=== PATIENT | male | born 1965 | race Hispanic/Latino ===

== ENCOUNTER 2022-10-02 00:24 | Inpatient (IN) | payer SELFPAY ==
[2022-10-02] MEDS ORDERED: Pantoprazole 40 MG VIAL ONE (01:04)
[2022-10-02] MEDS ORDERED: Pantoprazole 80 MG, Admixture Fee 1 EACH in Sodium Chloride 0.9% 100 ML IVPB SCH (01:30)
[2022-10-02] MEDS ORDERED: Octreotide Acetate 1,250 MCG in Sodium Chloride 0.9% 250 ML 250 ML IVPB SCH ×2 (01:30→09:00)
[2022-10-02 01:39] LABS: Hemoglobin 11.1 g/dL (14.0-18.0); Mean Corpuscular HGB CONC 35.9 g/dL (32.0-36.0); Mean Corpuscular Hemoglobin 36.8 pg (27.0-31.0); RBC Distribution Width 13.7 % (11.5-14.5); Red Blood Cell (RBC) Count 3.03 mill/uL (4.70-6.10); White Blood Cell (WBC) Count 8.9 10x3/uL (4.8-10.8)
[2022-10-02 01:42] LABS: ALT (SGPT) 27 U/L (8-55); AST (SGOT) 57 U/L (5-34); Albumin 3.3 g/dL (3.5-5.0); Alkaline Phosphatase 153 U/L (40-110); Anion Gap 16 mmol/L (10-20); BUN (Urea Nitrogen) 17 mg/dL (8.4-25.7); Bilirubin, Total 4.2 mg/dL (0.2-1.2); Calc. Creatinine Clearance 0 mL/min (70-130); Calcium 8.9 mg/dL (7.8-10.44); Carbon Dioxide 19 mmol/L (22-29); Chloride 106 mmol/L (98-107); Estimated GFR 103; Globulin 4.1 g/dL (2.4-3.5); Glucose 132 mg/dL (70-105); Protein, Total 7.4 g/dL (6.0-8.3); Sodium 137 mmol/L (136-145)
[2022-10-02 01:50] LABS: INR-International Normal Ratio 1.5; PTT 34.2 sec (22.9-36.1); Prothrombin Time 19.1 sec (12.0-14.7)
[2022-10-02 02:00] LABS: #Basophils 0.1 thou/uL (0.0-0.2); #Eosinphils 0.2 thou/uL (0.0-0.7); #Lymphocytes 3.4 thou/uL (1.20-3.40); #Monocytes 0.7 thou/uL (0.11-0.59); #Neutrophils 4.5 thou/uL (1.40-6.50); %Basophils 1.2 % (0.0-1.0); %Eosinophils 2.6 % (0.0-10.0); %Lymphocytes 37.9 % (21.0-51.0); %Monocytes 8.4 % (0.0-10.0); MDiff Complete? YES; Macrocytosis SLIGHT = 6-15 cells (100X) (0-5/hpf); Mean Platelet Volume 8.8 fL (7.4-10.4); Platelet Count 85 10x3/uL (130-400); Platelet Morphology Comment Appears Decreased; Polychromasia SLIGHT = 2-3 cells (100X) (0-2/hpf); Tear Drops SLIGHT = 2-5 cells (100X) (0-1/hpf)
[2022-10-02] MEDS ORDERED: Ondansetron PF 4 MG/2 ML Vial ONE ×3 (02:31→12:42)
[2022-10-02 07:05] LABS: Bacteria/HPF None Seen HPF (None Seen); Bilirubin Negative (Negative); Blood, Urine 1+ (Negative); Clarity Clear (Clear); Glucose, Urine (Dipstick) Normal (Negative); Ketone, Urine 10 mg/dL (Negative); Leukocyte Negative Leu/uL (Negative); Nitrite Negative (Negative); Protein, Urine (Dipstick) 30 mg/dL (Neg-Trace); Specific Gravity, Urine 1.036 (1.002-1.036); Squamous Epithelial None Seen HPF (0-3); WBC/HPF 0-3 HPF (0-3)
[2022-10-02] MEDS ORDERED: Ondansetron ODT 4 MG TAB PO PRN ×2 (08:37)
[2022-10-02] MEDS ORDERED: Ondansetron PF 4 MG/2 ML Vial IVP PRN (08:37)
[2022-10-02] MEDS ORDERED: Lorazepam 1 MG TAB PO PRN (08:37)
[2022-10-02] MEDS ORDERED: hydrALAZINE 20 MG/ML VIAL SLOW IVP PRN (08:37)
[2022-10-02] MEDS ORDERED: Lorazepam 2 MG/ML VIAL IM PRN (08:37)
[2022-10-02] MEDS ORDERED: Electrolyte Replacement Protocol 1 EACH FS SCH (08:45)
[2022-10-02] MEDS ORDERED: Pantoprazole 80 MG in Sodium Chloride 0.9% 100 ML IVPB SCH (09:00)
[2022-10-02] MEDS ORDERED: Lorazepam 1 MG TAB ONE (10:06)
[2022-10-02] MEDS ORDERED: Folic Acid 1 MG TAB ONE (10:06)
[2022-10-02] MEDS ORDERED: Morphine 2 MG/ML VIAL SLOW IVP PRN (10:11)
[2022-10-02 10:29] LABS: #Lymphocytes 1.8 thou/uL (1.20-3.40); #Monocytes 0.5 thou/uL (0.11-0.59); %Basophils 0.7 % (0.0-1.0); %Eosinophils 0.2 % (0.0-10.0); %Monocytes 7.2 % (0.0-10.0); Hemoglobin 10.7 g/dL (14.0-18.0); Mean Corpuscular HGB CONC 35.5 g/dL (32.0-36.0); Mean Corpuscular Hemoglobin 36.8 pg (27.0-31.0); Mean Platelet Volume 8.9 fL (7.4-10.4); Platelet Count 69 10x3/uL (130-400); RBC Distribution Width 13.8 % (11.5-14.5); White Blood Cell (WBC) Count 6.3 10x3/uL (4.8-10.8)
[2022-10-02 10:46] LABS: ALT (SGPT) 26 U/L (8-55); AST (SGOT) 50 U/L (5-34); Albumin 3.2 g/dL (3.5-5.0); Alkaline Phosphatase 135 U/L (40-110); Anion Gap 14 mmol/L (10-20); BUN (Urea Nitrogen) 23 mg/dL (8.4-25.7); Bilirubin, Direct 2.1 mg/dL (0.1-0.3); Bilirubin, Total 5.4 mg/dL (0.2-1.2); Calc. Creatinine Clearance 119 mL/min (70-130); Carbon Dioxide 18 mmol/L (22-29); Chloride 109 mmol/L (98-107); Estimated GFR 105; Globulin 3.9 g/dL (2.4-3.5); Glucose 147 mg/dL (70-105); Magnesium 1.8 mg/dL (1.6-2.6); Phosphorus 2.3 mg/dL (2.3-4.7); Potassium 4.4 mmol/L (3.5-5.1); Protein, Total 7.1 g/dL (6.0-8.3); Sodium 137 mmol/L (136-145)
[2022-10-02] MEDS ORDERED: Glycopyrrolate 0.2 MG/ML 5 ML SYRINGE ONE (11:37)
[2022-10-02] MEDS ORDERED: NEOSTIGMINE 3 MG/3 ML SYR 3 MG/3 ML SYRINGE ONE (11:37)
[2022-10-02] MEDS ORDERED: Lidocaine 1% PF 5 ML VIAL ONE (11:37)
[2022-10-02] MEDS ORDERED: Rocuronium Bromide 10 MG/ML (10ML VIAL) ONE (11:37)
[2022-10-02] MEDS ORDERED: PROPOFOL 200 MG/20 ML VIAL ONE (11:37)
[2022-10-02] MEDS ORDERED: Succinylcholine Chloride 100 MG/5 ML SYRINGE FS ONE (11:37)
[2022-10-02] MEDS: Lactated Ringer's 1,000 ML IV SCH ×2 (12:30→20:06)
[2022-10-02] MEDS ORDERED: Magnesium 2 GM/50 ML(in water) 2 GM in Premix Bag 1 BAG IVPB SCH (13:15)
[2022-10-02] MEDS: cefTRIAXone\\ROCEPHIN 1 GM in Sodium Chloride 0.9% 100 ML IVPB SCH (14:14)
[2022-10-02] MEDS: Lorazepam 1 MG TAB PO SCH ×3 (14:15→20:01)
[2022-10-02 17:13] VITALS: BMI 27.6
[2022-10-02 17:19] LABS: Amphetamine Not Detected (NotDetected); Barbiturates Screen Not Detected (NotDetected); Benzodiazepine Screen Not Detected (NotDetected); Cocaine Metabolite Screen Not Detected (NotDetected); Methadone Not Detected (NotDetected); Methamphetamine Not Detected (NotDetected); Opiate Screen Not Detected (NotDetected); Oxycodone Screen Not Detected (NotDetected); Phencyclidine (PCP) Not Detected (NotDetected); THC/Cannabinoid Screen Not Detected (NotDetected); Tricyclic Screen Not Detected (NotDetected)
[2022-10-02] MEDS: Multivit, Therapeutic 1 TAB PO SCH (18:04)
[2022-10-02] MEDS: Thiamine HCl 200 MG/2 ML VIAL SLOW IVP SCH (18:04)
[2022-10-02] MEDS: Folic Acid 1 MG TAB PO SCH (18:04)
[2022-10-02] MEDS ORDERED: Acetaminophen 500 MG TAB PO PRN (18:26)
[2022-10-02] MEDS: Rifaximin 550 MG TAB PO SCH (20:01)
[2022-10-02] MEDS: Pantoprazole 40 MG VIAL IVP SCH (20:02)
[2022-10-03] MEDS: Lorazepam 1 MG TAB PO SCH ×4 (03:46→20:41)
[2022-10-03] MEDS: Octreotide Acetate 1,250 MCG in Sodium Chloride 0.9% 250 ML 250 ML IVPB SCH (03:51)
[2022-10-03 06:35] LABS: #Basophils 0.1 thou/uL (0.0-0.2); #Eosinphils 0.1 thou/uL (0.0-0.7); #Lymphocytes 1.7 thou/uL (1.20-3.40); #Monocytes 0.5 thou/uL (0.11-0.59); #Neutrophils 3.4 thou/uL (1.40-6.50); %Basophils 1.2 % (0.0-1.0); %Eosinophils 1.2 % (0.0-10.0); %Lymphocytes 29.9 % (21.0-51.0); %Monocytes 8.4 % (0.0-10.0); %Neutrophils 59.4 % (42.0-75.0); Hemoglobin 9.2 g/dL (14.0-18.0); Mean Corpuscular HGB CONC 35.2 g/dL (32.0-36.0); Mean Corpuscular Hemoglobin 37.6 pg (27.0-31.0); Mean Platelet Volume 8.5 fL (7.4-10.4); Platelet Count 69 10x3/uL (130-400); Red Blood Cell (RBC) Count 2.45 mill/uL (4.70-6.10); White Blood Cell (WBC) Count 5.7 10x3/uL (4.8-10.8)
[2022-10-03 06:40] LABS: Magnesium 1.8 mg/dL (1.6-2.6)
[2022-10-03 06:41] LABS: Anion Gap 13 mmol/L (10-20); BUN (Urea Nitrogen) 17 mg/dL (8.4-25.7); Calc. Creatinine Clearance 109 mL/min (70-130); Calcium 8.3 mg/dL (7.8-10.44); Carbon Dioxide 20 mmol/L (22-29); Chloride 107 mmol/L (98-107); Estimated GFR 101; Glucose 127 mg/dL (70-105); Iron 160 ug/dL (65-175); Iron Binding Capacity, Total 170 mcg/dL (261-462); Potassium 3.5 mmol/L (3.5-5.1); Sodium 136 mmol/L (136-145)
[2022-10-03 07:23] LABS: Ferritin 128.06 ng/mL (22-322)
[2022-10-03 07:36] LABS: HBCM Index 0.09 S/CO (0-0.79); HBSAg Index 0.25 S/CO (0-0.99); Hep B Surf Ag Non-Reactive S/CO (NonReactive); Hep C IgG Ab Non-Reactive (NonReactive); Hep C Index 0.31 S/CO (0-0.79); Hepatitis B Core IgM Abs Non-Reactive (NonReactive)
[2022-10-03] MEDS: Lactated Ringer's 1,000 ML IV SCH ×2 (07:52→18:05)
[2022-10-03] MEDS ORDERED: Magnesium 2 GM/50 ML(in water) 2 GM in Premix Bag 1 BAG IVPB SCH (08:00)
[2022-10-03] MEDS ORDERED: Potassium Chloride 20 MEQ TAB PO SCH (08:00)
[2022-10-03] MEDS ORDERED: Lorazepam 1 MG TAB PO PRN (08:36)
[2022-10-03] MEDS: Multivit, Therapeutic 1 TAB PO SCH (09:37)
[2022-10-03] MEDS: Folic Acid 1 MG TAB PO SCH (09:37)
[2022-10-03] MEDS: Pantoprazole 40 MG VIAL IVP SCH ×2 (09:37→20:41)
[2022-10-03] MEDS: Thiamine HCl 200 MG/2 ML VIAL SLOW IVP SCH (09:37)
[2022-10-03] MEDS: Rifaximin 550 MG TAB PO SCH ×2 (09:37→20:41)
[2022-10-03] MEDS: cefTRIAXone\\ROCEPHIN 1 GM in Sodium Chloride 0.9% 100 ML IVPB SCH (10:23)
[2022-10-03 10:42] LABS: Hep A IgM S/CO 0.94 S/CO (0-0.79)
[2022-10-03 10:43] LABS: Hep A IgM AB Equivocal (NonReactive)
[2022-10-03 12:52] LABS: Syphilis Antibody Nonreactive (Nonreactive); Syphilis Antibody Index 0.15 S/CO (<1.00 Non-Reactive)
[2022-10-04] MEDS: Lactated Ringer's 1,000 ML IV SCH ×2 (03:59→15:13)
[2022-10-04] MEDS: Lorazepam 1 MG TAB PO SCH ×2 (04:01→08:58)
[2022-10-04] MEDS: Octreotide Acetate 1,250 MCG in Sodium Chloride 0.9% 250 ML 250 ML IVPB SCH (05:18)
[2022-10-04 05:28] LABS: Magnesium 1.7 mg/dL (1.6-2.6)
[2022-10-04] MEDS ORDERED: Magnesium 2 GM/50 ML(in water) 2 GM in Premix Bag 1 BAG IVPB SCH (08:00)
[2022-10-04] MEDS ORDERED: Lorazepam 1 MG TAB PO PRN (08:36)
[2022-10-04 08:38] LABS: #Basophils 0.1 thou/uL (0.0-0.2); #Eosinphils 0.1 thou/uL (0.0-0.7); #Lymphocytes 1.2 thou/uL (1.20-3.40); #Monocytes 0.4 thou/uL (0.11-0.59); #Neutrophils 3.3 thou/uL (1.40-6.50); %Basophils 1.5 % (0.0-1.0); %Eosinophils 1.8 % (0.0-10.0); %Lymphocytes 23.9 % (21.0-51.0); %Monocytes 8.4 % (0.0-10.0); %Neutrophils 64.4 % (42.0-75.0); Hemoglobin 9.1 g/dL (14.0-18.0); Mean Corpuscular HGB CONC 35.2 g/dL (32.0-36.0); Mean Corpuscular Hemoglobin 37.2 pg (27.0-31.0); Mean Platelet Volume 8.8 fL (7.4-10.4); Platelet Count 56 10x3/uL (130-400); Red Blood Cell (RBC) Count 2.46 mill/uL (4.70-6.10); White Blood Cell (WBC) Count 5.1 10x3/uL (4.8-10.8)
[2022-10-04] MEDS: Pantoprazole 40 MG VIAL IVP SCH ×2 (08:58→20:55)
[2022-10-04] MEDS: Rifaximin 550 MG TAB PO SCH ×2 (08:58→20:54)
[2022-10-04] MEDS: Thiamine HCl 200 MG/2 ML VIAL SLOW IVP SCH (08:58)
[2022-10-04] MEDS: Folic Acid 1 MG TAB PO SCH (08:58)
[2022-10-04] MEDS: Multivit, Therapeutic 1 TAB PO SCH (08:58)
[2022-10-04] MEDS ORDERED: Gabapentin 400 MG CAP PO PRN (09:34)
[2022-10-04] MEDS: cefTRIAXone\\ROCEPHIN 1 GM in Sodium Chloride 0.9% 100 ML IVPB SCH (10:40)
[2022-10-04 12:29] LABS: ANA Symphony (Qualitative) Negative (Negative); ANA Symphony (Quantitative) 0.5 Ratio (< 0.7 Negative); EliA Vaculitis New Method **** NEW METHOD ****; Mitochondrial Ab 2.2 U/mL (<4 Negative)
[2022-10-04] MEDS: Lorazepam 0.5 MG TAB PO SCH ×2 (15:13→20:55)
[2022-10-05] MEDS: Lactated Ringer's 1,000 ML IV SCH ×2 (00:46→09:23)
[2022-10-05] MEDS: Lorazepam 0.5 MG TAB PO SCH ×2 (03:00→09:25)
[2022-10-05 04:50] LABS: #Eosinphils 0.1 thou/uL (0.0-0.7); #Monocytes 0.4 thou/uL (0.11-0.59); #Neutrophils 2.6 thou/uL (1.40-6.50); %Basophils 0.8 % (0.0-1.0); %Lymphocytes 23.2 % (21.0-51.0); %Monocytes 10.2 % (0.0-10.0); %Neutrophils 62.8 % (42.0-75.0); Hemoglobin 8.5 g/dL (14.0-18.0); Mean Corpuscular HGB CONC 33.6 g/dL (32.0-36.0); Mean Corpuscular Hemoglobin 35.7 pg (27.0-31.0); Mean Platelet Volume 8.7 fL (7.4-10.4); Platelet Count 70 10x3/uL (130-400); RBC Distribution Width 14.2 % (11.5-14.5); Red Blood Cell (RBC) Count 2.39 mill/uL (4.70-6.10); White Blood Cell (WBC) Count 4.2 10x3/uL (4.8-10.8)
[2022-10-05 05:23] LABS: Magnesium 1.8 mg/dL (1.6-2.6)
[2022-10-05] MEDS: Octreotide Acetate 1,250 MCG in Sodium Chloride 0.9% 250 ML 250 ML IVPB SCH (06:31)
[2022-10-05] MEDS ORDERED: Magnesium 2 GM/50 ML(in water) 2 GM in Premix Bag 1 BAG IVPB SCH (08:00)
[2022-10-05] MEDS ORDERED: Lorazepam 0.5 MG TAB PO PRN (08:36)
[2022-10-05] MEDS ORDERED: Thiamine 100 MG TAB PO SCH (09:00)
[2022-10-05] MEDS ORDERED: Propranolol 10 MG TAB PO SCH (09:00)
[2022-10-05] MEDS ORDERED: Lisinopril/Hydrochlorothiazide 10 mg/12.5 mg Tablet PO SCH (09:00)
[2022-10-05] MEDS: Multivit, Therapeutic 1 TAB PO SCH (09:22)
[2022-10-05] MEDS: Rifaximin 550 MG TAB PO SCH (09:22)
[2022-10-05] MEDS: Folic Acid 1 MG TAB PO SCH (09:22)
[2022-10-05] MEDS: Pantoprazole 40 MG VIAL IVP SCH (09:22)
[2022-10-05] MEDS: cefTRIAXone\\ROCEPHIN 1 GM in Sodium Chloride 0.9% 100 ML IVPB SCH (10:31)
[2022-10-05 12:54] VITALS: TEMP 98.5
[2022-10-05 14:24] VITALS: BP 135/75
== END 2022-10-05 14:14 | disposition home or self-care (01) | DRG 432 ==
LOC: ERS 00:24 → ERHOLD 02:32 → 2SW 10:59 → SURG A 12:01 → 2SW 16:28
PROVIDERS: ADMIT Internal Medicine; ATTEND Internal Medicine
PROC: 06L38CZ Occlusion of Esophageal Vein with Extraluminal Device, Via Natural or Artificial Opening Endoscopic (ICD-10-PCS; principal; 2022-10-02)
DX: K70.30 Alcoholic cirrhosis of liver without ascites (principal); I81 Portal vein thrombosis; I85.11 Secondary esophageal varices with bleeding; D62 Acute posthemorrhagic anemia; K76.6 Portal hypertension; I10 Essential (primary) hypertension; Z60.2 Problems related to living alone; G62.9 Polyneuropathy, unspecified; F32.A Depression, unspecified; K80.20 Calculus of gallbladder without cholecystitis without obstruction; F10.10 Alcohol abuse, uncomplicated; Z83.3 Family history of diabetes mellitus; Z79.899 Other long term (current) drug therapy; K31.89 Other diseases of stomach and duodenum
CPT/HCPCS: 36415; 76700; 80048; 80053; 80074; 80306; 80307; 81003; 81015; 82103; 82105; 82248; 82390; 82728; 83516; 83540; 83550; 83735; 84100; 85025; 85610; 85730; 86015; 86038; 86225; 86780; 86850; 86900; 86901; 93005; 94760; 96361; 96374; 96375; 96376; C9113; J0696; J2354; J2405; J2704; J3411; J3475; J3490; J7050; J7120

== ENCOUNTER 2023-05-15 13:37 | Inpatient (IN) | payer SELFPAY ==
[2023-05-15] MEDS ORDERED: Iopamidol-370 76% 500 ML MDV (1 ML CHARGE) ONE (13:58)
[2023-05-15 14:54] LABS: #Basophils 0.1 thou/uL (0.0-0.2); #Eosinphils 0.1 thou/uL (0.0-0.7); #Monocytes 1.1 thou/uL (0.11-0.59); #Neutrophils 8.4 thou/uL (1.40-6.50); %Basophils 0.7 % (0.0-1.0); %Eosinophils 1.2 % (0.0-10.0); %Lymphocytes 11.2 % (21.0-51.0); %Monocytes 10.3 % (0.0-10.0); %Neutrophils 75.8 % (42.0-75.0); Hematocrit 31.6 % (42.0-52.0); Hemoglobin 10.7 g/dL (14.0-18.0); Mean Corpuscular HGB CONC 33.9 g/dL (32.0-36.0); Mean Corpuscular Volume 97.5 fl (78.0-98.0); Mean Platelet Volume 12.9 fL (7.4-10.4); Platelet Count 175 10x3/uL (130-400); RBC Distribution Width 18.3 % (11.5-14.5); Red Blood Cell (RBC) Count 3.24 mill/uL (4.70-6.10); White Blood Cell (WBC) Count 11.1 10x3/uL (4.8-10.8)
[2023-05-15 15:39] LABS: Bacteria/HPF None Seen HPF (None Seen); Bilirubin Negative (Negative); Blood, Urine Negative (Negative); CAUTI Indications for Culture Pelvic or flank pain; Clarity Clear (Clear); Glucose, Urine (Dipstick) Normal (Negative); Ketone, Urine Trace mg/dL (Negative); Leukocyte Negative Leu/uL (Negative); Nitrite Negative (Negative); Protein, Urine (Dipstick) Negative (Neg-Trace); RBC/HPF 0-3 HPF (0-3); Specific Gravity, Urine 1.015 (1.002-1.036); Squamous Epithelial 0-3 HPF (0-3); Urobilinogen Normal mg/dL (Less than 2); WBC/HPF 0-3 HPF (0-3); pH, Urine 5.5 (5.0-9.0)
[2023-05-15 15:47] LABS: Urine Culture Reflex No No
[2023-05-15 16:39] LABS: Albumin 3.5 g/dL (3.5-5.0)
[2023-05-15 16:41] LABS: Chloride 94 mmol/L (98-107); Potassium 3.2 mmol/L (3.5-5.1); Sodium 123 mmol/L (136-145)
[2023-05-15 16:42] LABS: Globulin 4.8 g/dL (2.4-3.5); Glucose 99 mg/dL (70-105); Protein, Total 8.3 g/dL (6.0-8.3)
[2023-05-15 16:43] LABS: Anion Gap 19 mmol/L (10-20); Carbon Dioxide 13 mmol/L (22-29)
[2023-05-15 16:45] LABS: Alkaline Phosphatase 141 U/L (40-110)
[2023-05-15 16:46] LABS: BUN (Urea Nitrogen) 57 mg/dL (8.4-25.7); Calc. Creatinine Clearance 0 mL/min (70-130); Estimated GFR 20
[2023-05-15 16:47] LABS: AST (SGOT) 86 U/L (5-34)
[2023-05-15 16:48] LABS: ALT (SGPT) 29 U/L (8-55); Lipase 45 U/L (8-78)
[2023-05-15] MEDS ORDERED: Potassium Bicarbonate/Cit Ac 20 MEQ TAB ONE (17:37)
[2023-05-15] MEDS ORDERED: Potassium Chloride 20 MEQ TAB ONE (17:38)
[2023-05-15 19:14] LABS: Anion Gap 16 mmol/L (10-20); BUN (Urea Nitrogen) 52 mg/dL (8.4-25.7); Calc. Creatinine Clearance 0 mL/min (70-130); Calcium 8.3 mg/dL (7.8-10.44); Carbon Dioxide 14 mmol/L (22-29); Chloride 95 mmol/L (98-107); Estimated GFR 25; Glucose 93 mg/dL (70-105); Potassium 3.4 mmol/L (3.5-5.1); Sodium 122 mmol/L (136-145)
[2023-05-15 19:16] LABS: Lactic Acid 2.1 mmol/L (0.5-2.2)
[2023-05-15 20:10] LABS: Actual Bicarbonate (HCO3v) 17.6 mEq/L (22-28); Base Excess -6.8 mEq/L (-2.0 to +3.0); Calcium, Ionized (venous) 1.04 mmol/L (1.16-1.32); Chloride (VBG) 96 mmol/L (98-106); Hematocrit-VBG 39 % (42.0-52.0); Hemoglobin (Hb) 13.1 g/dL (13.1-17.2); Potassium (VBG) 3.66 mmol/L (3.70-5.30); Sodium 125 mmol/L (133-146); pH (venous) 7.358 (7.32-7.43)
[2023-05-15] MEDS ORDERED: Ondansetron ODT 4 MG TAB PO PRN (20:15)
[2023-05-15] MEDS ORDERED: Ondansetron ODT 4 MG TAB SL PRN (20:30)
[2023-05-15] MEDS ORDERED: Ondansetron PF 4 MG/2 ML Vial IVP PRN (20:30)
[2023-05-15] MEDS ORDERED: Sodium Bicarb 50 MEQ/50 ML VIAL IVP SCH (20:30)
[2023-05-15] MEDS ORDERED: Acetaminophen 325 MG TAB PO PRN (20:30)
[2023-05-15] MEDS ORDERED: Sodium Bicarbonate 150 MEQ in Dextrose 5% in Water 1,000 ML IV SCH ×2 (20:30→21:58)
[2023-05-15 21:34] LABS: Actual Bicarbonate (HCO3v) 15.5 mEq/L (22-28); Base Excess -7.2 mEq/L (-2.0 to +3.0); Calcium, Ionized (venous) 0.94 mmol/L (1.16-1.32); Chloride (VBG) 96 mmol/L (98-106); Hematocrit-VBG 32 % (42.0-52.0); Hemoglobin (Hb) 10.9 g/dL (13.1-17.2); Potassium (VBG) 3.67 mmol/L (3.70-5.30); Sodium 122 mmol/L (133-146); pH (venous) 7.432 (7.32-7.43)
[2023-05-15] MEDS ORDERED: Lorazepam 2 MG/ML VIAL IM PRN (22:24)
[2023-05-15] MEDS ORDERED: Lorazepam 1 MG TAB PO PRN (22:24)
[2023-05-15 22:40] LABS: Anion Gap 17 mmol/L (10-20); BUN (Urea Nitrogen) 52 mg/dL (8.4-25.7); Calc. Creatinine Clearance 0 mL/min (70-130); Carbon Dioxide 13 mmol/L (22-29); Chloride 96 mmol/L (98-107); Estimated GFR 26; Glucose 137 mg/dL (70-105); Potassium 3.5 mmol/L (3.5-5.1); Sodium 122 mmol/L (136-145)
[2023-05-15 22:47] LABS: Magnesium 1.9 mg/dL (1.6-2.6); Phosphorus 3.1 mg/dL (2.3-4.7)
[2023-05-15 22:51] VITALS: BMI 26.2
[2023-05-15] MEDS ORDERED: Sodium Bicarb 50 MEQ/50 ML Abboject 8.4% SYRINGE IVP SCH (23:00)
[2023-05-15] MEDS: Albumin 25% 25 GM/100 ML BOT IVPB SCH (23:11)
[2023-05-15] MEDS: Thiamine HCl 200 MG/2 ML VIAL SLOW IVP SCH (23:11)
[2023-05-16 02:13] LABS: Anion Gap 18 mmol/L (10-20); BUN (Urea Nitrogen) 51 mg/dL (8.4-25.7); Calc. Creatinine Clearance 36 mL/min (70-130); Calcium 7.9 mg/dL (7.8-10.44); Carbon Dioxide 18 mmol/L (22-29); Chloride 95 mmol/L (98-107); Estimated GFR 30; Glucose 111 mg/dL (70-105); Potassium 3.1 mmol/L (3.5-5.1); Sodium 128 mmol/L (136-145)
[2023-05-16 05:02] LABS: #Basophils 0.1 thou/uL (0.0-0.2); #Eosinphils 0.1 thou/uL (0.0-0.7); #Monocytes 0.9 thou/uL (0.11-0.59); #Neutrophils 4.5 thou/uL (1.40-6.50); %Basophils 0.9 % (0.0-1.0); %Eosinophils 1.8 % (0.0-10.0); %Lymphocytes 15.7 % (21.0-51.0); %Monocytes 13.2 % (0.0-10.0); %Neutrophils 67.3 % (42.0-75.0); Hematocrit 26.7 % (42.0-52.0); Hemoglobin 9.5 g/dL (14.0-18.0); Mean Corpuscular HGB CONC 35.6 g/dL (32.0-36.0); Mean Corpuscular Hemoglobin 32.9 pg (27.0-31.0); Mean Platelet Volume 10.4 fL (7.4-10.4); RBC Distribution Width 17.4 % (11.5-14.5); Red Blood Cell (RBC) Count 2.89 mill/uL (4.70-6.10); White Blood Cell (WBC) Count 6.6 10x3/uL (4.8-10.8)
[2023-05-16 05:25] LABS: Anion Gap 17 mmol/L (10-20); BUN (Urea Nitrogen) 44 mg/dL (8.4-25.7); Calc. Creatinine Clearance 47 mL/min (70-130); Calcium 8.1 mg/dL (7.8-10.44); Carbon Dioxide 20 mmol/L (22-29); Chloride 94 mmol/L (98-107); Estimated GFR 42; Glucose 104 mg/dL (70-105); Potassium 3.2 mmol/L (3.5-5.1); Sodium 128 mmol/L (136-145)
[2023-05-16 06:20] LABS: Anion Gap 13 mmol/L (10-20); BUN (Urea Nitrogen) 43 mg/dL (8.4-25.7); Calc. Creatinine Clearance 47 mL/min (70-130); Calcium 8.2 mg/dL (7.8-10.44); Carbon Dioxide 22 mmol/L (22-29); Chloride 94 mmol/L (98-107); Estimated GFR 41; Glucose 98 mg/dL (70-105); Potassium 3.1 mmol/L (3.5-5.1); Sodium 126 mmol/L (136-145)
[2023-05-16 07:54] LABS: Platelet Count 85 10x3/uL (130-400)
[2023-05-16 08:05] LABS: Mean Corpuscular Volume 94.4 fl (78.0-98.0)
[2023-05-16] MEDS: Albumin 25% 25 GM/100 ML BOT IVPB SCH ×3 (08:25→22:01)
[2023-05-16] MEDS: Rifaximin 200 MG TAB PO SCH ×2 (08:25→22:01)
[2023-05-16] MEDS: Propranolol 10 MG TAB PO SCH (08:26)
[2023-05-16] MEDS: Multivit, Therapeutic 1 TAB PO SCH (08:26)
[2023-05-16] MEDS: Folic Acid 1 MG TAB PO SCH (08:26)
[2023-05-16] MEDS: Thiamine 100 MG TAB PO SCH (08:26)
[2023-05-16] MEDS: Hydrocortisone 2.5%/Pramoxine 1% CRM 30 GM TUBE TOP SCH ×2 (08:27→16:03)
[2023-05-16] MEDS ORDERED: Famotidine 20 MG TAB PO SCH (09:00)
[2023-05-16] MEDS ORDERED: Folic Acid 1 MG TAB PO SCH (09:00)
[2023-05-16] MEDS ORDERED: Vancomycin HCl 125 MG Capsule PO SCH ×2 (10:00→12:00)
[2023-05-16 10:42] LABS: Anion Gap 16 mmol/L (10-20); BUN (Urea Nitrogen) 37 mg/dL (8.4-25.7); Calc. Creatinine Clearance 59 mL/min (70-130); Calcium 8.2 mg/dL (7.8-10.44); Carbon Dioxide 19 mmol/L (22-29); Chloride 94 mmol/L (98-107); Estimated GFR 55; Glucose 124 mg/dL (70-105); Potassium 3.3 mmol/L (3.5-5.1); Sodium 126 mmol/L (136-145)
[2023-05-16 17:30] LABS: Anion Gap 14 mmol/L (10-20); BUN (Urea Nitrogen) 30 mg/dL (8.4-25.7); Calc. Creatinine Clearance 73 mL/min (70-130); Calcium 8.5 mg/dL (7.8-10.44); Carbon Dioxide 20 mmol/L (22-29); Chloride 96 mmol/L (98-107); Estimated GFR 71; Glucose 98 mg/dL (70-105); Potassium 3.7 mmol/L (3.5-5.1); Sodium 126 mmol/L (136-145)
[2023-05-16] MEDS: Vancomycin HCl 125 MG Capsule PO SCH (17:40)
[2023-05-16] MEDS: Thiamine HCl 200 MG/2 ML VIAL SLOW IVP SCH (22:03)
[2023-05-16] MEDS ORDERED: Lorazepam 1 MG TAB PO PRN (22:24)
[2023-05-17] MEDS: Hydrocortisone 2.5%/Pramoxine 1% CRM 30 GM TUBE TOP SCH ×2 (01:47→08:46)
[2023-05-17] MEDS: Acetaminophen 325 MG TAB PO PRN ×2 (05:11→10:18)
[2023-05-17] MEDS: Vancomycin HCl 125 MG Capsule PO SCH ×3 (05:11→11:26)
[2023-05-17 05:33] LABS: #Eosinphils 0.2 thou/uL (0.0-0.7); #Monocytes 0.7 thou/uL (0.11-0.59); #Neutrophils 2.4 thou/uL (1.40-6.50); %Basophils 0.7 % (0.0-1.0); %Eosinophils 4.1 % (0.0-10.0); %Lymphocytes 24.5 % (21.0-51.0); %Neutrophils 54.2 % (42.0-75.0); Hematocrit 24.9 % (42.0-52.0); Hemoglobin 8.6 g/dL (14.0-18.0); Mean Corpuscular HGB CONC 34.5 g/dL (32.0-36.0); Mean Corpuscular Volume 95.4 fl (78.0-98.0); RBC Distribution Width 17.2 % (11.5-14.5); Red Blood Cell (RBC) Count 2.61 mill/uL (4.70-6.10); White Blood Cell (WBC) Count 4.4 10x3/uL (4.8-10.8)
[2023-05-17 05:35] LABS: Platelet Count 85 10x3/uL (130-400)
[2023-05-17 06:04] LABS: Anion Gap 13 mmol/L (10-20); BUN (Urea Nitrogen) 25 mg/dL (8.4-25.7); Calc. Creatinine Clearance 88 mL/min (70-130); Calcium 8.3 mg/dL (7.8-10.44); Carbon Dioxide 21 mmol/L (22-29); Chloride 97 mmol/L (98-107); Estimated GFR 89; Glucose 106 mg/dL (70-105); Potassium 3.2 mmol/L (3.5-5.1); Sodium 128 mmol/L (136-145)
[2023-05-17 07:44] VITALS: TEMP 98.9
[2023-05-17] MEDS: Propranolol 10 MG TAB PO SCH (08:45)
[2023-05-17] MEDS: Rifaximin 200 MG TAB PO SCH (08:45)
[2023-05-17] MEDS: Thiamine 100 MG TAB PO SCH (08:45)
[2023-05-17] MEDS: Folic Acid 1 MG TAB PO SCH (08:45)
[2023-05-17] MEDS: Multivit, Therapeutic 1 TAB PO SCH (08:45)
[2023-05-17] MEDS ORDERED: Lorazepam 1 MG TAB PO PRN (22:24)
[2023-05-18 16:15] LABS: Adenovirus F 40-41 Not Detected (Not Detected); Astrovirus Not Detected (Not Detected); C. difficile toxin A+B DETECTED (Not Detected); Campylobacter by PCR Not Detected (Not Detected); Cryptosporidium Not Detected (Not Detected); Cyclospora cayetanensis Not Detected (Not Detected); Entamoeba histolytica Not Detected (Not Detected); Enteroaggregative E. coli Not Detected (Not Detected); Enteropathogenic E. coli Not Detected (Not Detected); Enterotoxigenic E. coli Not Detected (Not Detected); Giardia lamblia Not Detected (Not Detected); Norovirus GI-GII Not Detected (Not Detected); Plesiomonas shigelloides Not Detected (Not Detected); Rotavirus A Not Detected (Not Detected); Salmonella Not Detected (Not Detected); Sapovirus Not Detected (Not Detected); Shiga-toxin-producing E coli Not Detected (Not Detected); Shigella/Enteroinvasive E coli Not Detected (Not Detected); Vibrio Not Detected (Not Detected); Vibrio cholerae Not Detected (Not Detected); Yersinia enterocolitica Not Detected (Not Detected)
[2023-05-18] MEDS ORDERED: Lorazepam 0.5 MG TAB PO PRN (22:24)
== END 2023-05-17 12:00 | disposition home or self-care (01) | DRG 372 ==
LOC: ERS 13:37 → IMCU/EMU 20:08
PROVIDERS: ADMIT Student in an Organized Health Care Education/Training Program; ATTEND Internal Medicine
PROC: 30233J1 Transfusion of Nonautologous Serum Albumin into Peripheral Vein, Percutaneous Approach (ICD-10-PCS; principal; 2023-05-15)
DX: A04.72 Enterocolitis due to Clostridium difficile, not specified as recurrent (principal); E87.1 Hypo-osmolality and hyponatremia; N17.9 Acute kidney failure, unspecified; N18.4 Chronic kidney disease, stage 4 (severe); E87.20 Acidosis, unspecified; Z51.5 Encounter for palliative care; Z66 Do not resuscitate; K70.30 Alcoholic cirrhosis of liver without ascites; E80.6 Other disorders of bilirubin metabolism; F32.A Depression, unspecified; F10.20 Alcohol dependence, uncomplicated; G62.9 Polyneuropathy, unspecified; E87.6 Hypokalemia; I12.9 Hypertensive chronic kidney disease with stage 1 through stage 4 chronic kidney disease, or unspecified chronic kidney disease; E86.0 Dehydration; Z79.899 Other long term (current) drug therapy; Z98.890 Other specified postprocedural states
CPT/HCPCS: 36415; 74177; 80048; 80053; 80307; 81001; 82805; 83605; 83630; 83690; 83735; 83930; 83935; 84100; 84300; 85025; 87040; 87324; 87449; 87507; J3411; J7070; P9047; Q9967